=== PATIENT | male | born 1975 | race African-American/Black ===

== ENCOUNTER 2024-06-06 13:48 | Emergency (ER) | payer MEDICAID ==
[~2024-06-06] VITALS: Ht 172.7 cm; Wt 71.7 kg
[2024-06-06 13:49] VITALS: BP 96/52; PULSE 130; RESP 17; TEMP 98.2; O2SAT 97
[2024-06-06 14:00] VITALS: TEMP 98.2
[2024-06-06 14:32] LABS: BASOPHILS # (AUTO) 0.1 K/uL (0.00-0.22); BASOPHILS % (AUTO) 0.9 % (0.0-2.0); EOSINOPHILS # (AUTO) 0.2 K/uL (0-0.4); EOSINOPHILS % (AUTO) 2.8 % (0.0-4.0); HEMATOCRIT 41.1 % (36-52); HEMOGLOBIN 13.6 g/dL (12.0-18.0); LYMPHOCYTES # (AUTO) 1.7 K/uL (2.0-11.5); LYMPHOCYTES % (AUTO) 23.7 % (20.5-51.1); MEAN CORPUSCULAR HEMOGLOBIN 27 pg (27-31); MEAN CORPUSCULAR HGB CONC 33 g/dL (33-37); MONOCYTES # (AUTO) 0.8 K/uL (0.8-1.0); NEUTROPHILS # (AUTO) 4.3 K/uL (1.8-7.7); NEUTROPHILS % (AUTO) 61.6 % (42.2-75.2); PLATELET COUNT (AUTO) 423 K/uL (140-450); RED BLOOD CELL COUNT(AUTO) 5.08 MIL/uL (4.20-6.10)
[2024-06-06] MEDS: NACL 0.9% 1,000 ML IV ONE (14:47)
[2024-06-06 14:55] LABS: ALANINE AMINOTRANSFERASE 42 U/L (12-78); ALBUMIN 3.6 g/dL (3.4-5.0); ALKALINE PHOSPHATASE 141 U/L (50-136); ASPARTATE AMINOTRANSFERASE 37 U/L (15-37); CALCIUM 9.2 mg/dL (8.5-10.1); CARBON DIOXIDE 29.6 mmol/L (21-32); CHLORIDE 94 mmol/L (98-107); CREATININE 0.6 mg/dL (0.6-1.3); GFR ARICAN-AMERICAN 187 mL/min (>90); GFR NON ARICAN-AMERICAN 154 mL/min (>90); GLUCOSE 98 mg/dL (74-106); LIPASE 21 U/L (16-77); POTASSIUM 3.6 mmol/L (3.5-5.1); SODIUM SERUM 132 mmol/L (136-145); TOTAL BILIRUBIN 0.5 mg/dL (0.0-1.0); TOTAL PROTEIN, SERUM 8.5 g/dL (6.4-8.2); UREA NITROGEN, BLOOD 9 mg/dL (7-18)
[2024-06-06 18:05] VITALS: BP 103/58; PULSE 93; RESP 18; O2SAT 99
== END 2024-06-06 18:05 | disposition home or self-care (01) ==
LOC: MED 13:48
DX: S80.211A Abrasion, right knee, initial encounter (principal); R03.1 Nonspecific low blood-pressure reading; W18.39XA Other fall on same level, initial encounter; Y92.89 Other specified places as the place of occurrence of the external cause; Y93.89 Activity, other specified; Y99.8 Other external cause status
CPT/HCPCS: 36415; 73562; 80053; 83690; 84484; 85025; 93005; 96360; 99285; J7030

== ENCOUNTER 2024-06-07 15:12 | Emergency (ER) | payer MEDICAID ==
[~2024-06-07] VITALS: Ht 188 cm; Wt 77.1 kg
[2024-06-07 15:20] VITALS: BP 124/83; PULSE 110; RESP 18; TEMP 98.4; O2SAT 98
[2024-06-07] MEDS ORDERED: ACETAMINOPHEN 325 MG TAB PO ONE (18:20)
[2024-06-07] MEDS: ACETAMINOPHEN 325 MG TAB PO ONE (20:09)
[2024-06-07 20:19] VITALS: BP 124/83; PULSE 110; RESP 18; TEMP 98.4; O2SAT 98
== END 2024-06-07 20:17 | disposition home or self-care (01) ==
LOC: MED 15:12
DX: M25.561 Pain in right knee (principal); M25.562 Pain in left knee
CPT/HCPCS: 99283